=== PATIENT | male | born 2000 | race Caucasian/White ===

== ENCOUNTER 2022-06-24 20:28 | Emergency (ER) | payer BC ==
[~2022-06-24] VITALS: Ht 177.8 cm; Wt 77.3 kg
[2022-06-24 20:35] VITALS: TEMP 98
[2022-06-24 22:50] VITALS: BP 118/71; PULSE 72
== END 2022-06-24 22:50 | disposition home or self-care (01) ==
LOC: COL.ER 20:28
DX: S00.11XA Contusion of right eyelid and periocular area, initial encounter (principal); Z28.310 Unvaccinated for COVID-19; W22.8XXA Striking against or struck by other objects, initial encounter